=== PATIENT | male | born 1985 | race Hispanic/Latino ===

== ENCOUNTER 2017-03-03 01:19 | Emergency (ER) | payer SELFPAY ==
[~2017-03-03] VITALS: Ht 170.2 cm; Wt 83.9 kg
[2017-03-03 01:25] VITALS: BP 152/84
== END 2017-03-03 04:07 | disposition left against medical advice (07) ==
LOC: M ED 02:16
DX: Z53.21 Procedure and treatment not carried out due to patient leaving prior to being seen by health care provider (principal)

== ENCOUNTER 2017-03-06 22:40 | Emergency (ER) | payer SELFPAY ==
[~2017-03-06] VITALS: Ht 170.2 cm; Wt 83.9 kg
[2017-03-06 22:41] VITALS: BP 151/88
[2017-03-07] MEDS ORDERED: PRED20TA PO (00:24)
[2017-03-07] MEDS ORDERED: diphenhydrAMINE 50 MG CAP PO ONE (00:30)
[2017-03-07] MEDS ORDERED: predniSONE 20 MG TAB PO ONE (00:30)
[2017-03-07] MEDS ORDERED: predniSONE 50 MG TAB PO ONE (00:30)
== END 2017-03-07 00:34 | disposition home or self-care (01) ==
LOC: M ED 23:37
DX: L50.0 Allergic urticaria (principal); Z88.1 Allergy status to other antibiotic agents

== ENCOUNTER 2017-07-06 22:46 | Emergency (ER) | payer OTHER, SELFPAY ==
[~2017-07-06] VITALS: Ht 170.2 cm; Wt 84.1 kg
[~2017-07-06 22:46] MED LIST: PRED20TA PO
[2017-07-06] MEDS ORDERED: ALEV220C2 PO (22:57)
[2017-07-06] MEDS ORDERED: ACETAMINOPHEN 325 MG TAB PO ONE (23:15)
[2017-07-06] MEDS ORDERED: NS 1,000 ML IV ONE (23:15)
[2017-07-06] MEDS ORDERED: METOCLOPRAMIDE INJ 10MG/2ML VIAL (J2765) IV ONE (23:15)
[2017-07-07] MEDS ORDERED: IBUP80TA PO (01:22)
[2017-07-07] MEDS ORDERED: ONDA4TAB6 PO (01:22)
[2017-07-07 01:28] VITALS: BP 178/83
== END 2017-07-07 01:30 | disposition home or self-care (01) ==
LOC: M ED 22:46
DX: G43.109 Migraine with aura, not intractable, without status migrainosus (principal); Z88.1 Allergy status to other antibiotic agents
CPT/HCPCS: 96374; 99283; J2765

== ENCOUNTER → 2017-07-25 | Outpatient (REF) ==
[~2017-07-25] MED LIST changes: +ALEV220C2 PO; +IBUP80TA PO; +ONDA4TAB6 PO
== END ==
LOC: M LAB 09:40
PROVIDERS: ATTEND Nurse Practitioner Adult Health
DX: Z00.00 Encounter for general adult medical examination without abnormal findings (principal)

== ENCOUNTER → 2019-03-31 | Outpatient (REF) | LOC: M LAB 15:32 | PROVIDERS: ATTEND Nurse Practitioner Adult Health | DX: Z02.1 Encounter for pre-employment examination (principal) ==

== ENCOUNTER 2019-10-19 21:45 | Emergency (ER) | payer OTHER ==
[~2019-10-19] VITALS: Ht 172.7 cm; Wt 86.4 kg
[2019-10-20] MEDS ORDERED: ACET-683 PO (00:27)
[2019-10-20] MEDS ORDERED: ISOVUE-370 76% 100ML VIAL (Q9967) As Ordered ONE (01:04)
--- NOTE | 2019-10-20 01:38 | REPVR ---
PROCEDURE INFORMATION: Exam: CT Head Without Contrast Exam date and time: 10/20/2019 1:17 AM Age: 34 years old Clinical history: Pain; Headache TECHNIQUE: Imaging protocol: Computed tomography of the head without contrast. Radiation optimization: All CT scans at this facility use at least one of these dose optimization techniques: automated exposure control; mA and/or kV adjustment per patient size (includes targeted exams where dose is matched to clinical indication); or iterative reconstruction. COMPARISON: No relevant prior studies available. FINDINGS: Brain: Normal. No hemorrhage. Unremarkable white matter. No mass effect. Ventricles: Normal. No ventriculomegaly. Bones/joints: Unremarkable. No acute fracture. Sinuses: Visualized sinuses are unremarkable. No fluid levels. Mastoid air cells: Visualized mastoid air cells are well aerated. Soft tissues: Unremarkable. IMPRESSION: No acute intracranial abnormality. Electronically signed by: Shekhar Camilo On 10/20/2019 01:37:38 AM
--- NOTE | 2019-10-20 01:43 | REPVR ---
PROCEDURE INFORMATION: Exam: CT Angiography Head With Contrast Exam date and time: 10/20/2019 1:17 AM Age: 34 years old Clinical history: Pain; Headache; Additional info: Persistent left sided headaches, famhx cerebral aneurysm TECHNIQUE: Imaging protocol: Computed tomography angiography of the head with intravenous contrast. 3D rendering: MIP and 3D reconstructed images were created and reviewed. Radiation optimization: All CT scans at this facility use at least one of these dose optimization techniques: automated exposure control; mA and/or kV adjustment per patient size (includes targeted exams where dose is matched to clinical indication); or iterative reconstruction. Contrast material: ISOVUE 370; Contrast volume: 75 ml; Contrast route: IV; COMPARISON: No relevant prior studies available. FINDINGS: Right internal carotid artery: Unremarkable. Intracranial segment is patent with no significant stenosis. No aneurysm. Right anterior cerebral artery: Unremarkable. No occlusion or significant stenosis. No aneurysm. Right middle cerebral artery: Unremarkable. No occlusion or significant stenosis. No aneurysm. Right posterior cerebral artery: Unremarkable. No occlusion or significant stenosis. No aneurysm. Right vertebral artery: Unremarkable. No occlusion or significant stenosis. No aneurysm. Left internal carotid artery: Unremarkable. Intracranial segment is patent with no significant stenosis. No aneurysm. Left anterior cerebral artery: Unremarkable. No occlusion or significant stenosis. No aneurysm. Left middle cerebral artery: Unremarkable. No occlusion or significant stenosis. No aneurysm. Left posterior cerebral artery: Unremarkable. No occlusion or significant stenosis. No aneurysm. Left vertebral artery: Unremarkable. No occlusion or significant stenosis. No aneurysm. Basilar artery: Unremarkable. No occlusion or significant stenosis. No aneurysm. IMPRESSION: Normal CTA. No significant stenosis, aneurysm, or vascular occlusion. Electronically signed by: Shekhar Camilo On 10/20/2019 01:43:07 AM
[2019-10-20] MEDS ORDERED: KETOROLAC 30 MG/ML VIAL (J1885) IV ONE (02:00)
[2019-10-20 02:13] VITALS: BP 123/78
== END 2019-10-20 02:17 | disposition home or self-care (01) ==
LOC: M ED 21:45
DX: R51 Headache (principal); Z82.49 Family history of ischemic heart disease and other diseases of the circulatory system; Z88.1 Allergy status to other antibiotic agents
CPT/HCPCS: 70450; 70496; 80047; 99284; J1885; Q9967

== ENCOUNTER 2020-02-18 19:33 | Emergency (ER) | payer OTHER ==
[~2020-02-18] VITALS: Ht 170.2 cm; Wt 91.3 kg
[~2020-02-18 19:33] MED LIST changes: +ACET-683 PO
[2020-02-18 20:15] LABS: BASO % 0.3 % (0.0-1.0); EOS % 0.3 % (0.0-3.0); HEMATOCRIT 41.7 % (42.0-52.0); LYMPH # 3.2 10^3/uL (1.5-5.0); LYMPH % 36.2 % (24.0-44.0); MEAN CORPUSCULAR HEMOGLOBIN 29.7 pg (27.0-33.0); MEAN CORPUSCULAR HGB CONC 33.6 g/dl (32.0-36.5); MEAN CORPUSCULAR VOLUME 88.5 fl (80.0-96.0); MONO # 0.7 10^3/uL (0.0-0.8); MONO % 7.8 % (0.0-5.0); NEUTROPHILS # 4.8 10^3/uL (1.5-8.5); NEUTROPHILS % 54.8 % (36.0-66.0); PLATELET COUNT, AUTOMATED 318 10^3/uL (150-450); RED BLOOD COUNT 4.71 10^6/uL (4.30-6.10); WHITE BLOOD COUNT 8.7 10^3/uL (4.0-10.0)
[2020-02-18 20:24] LABS: INR 0.99; PROTHROMBIN TIME 12.8 SECONDS (11.8-14.0)
[2020-02-18 20:25] LABS: PARTIAL THROMBOPLASTIN TIME 31.4 SECONDS (25.0-38.4)
[2020-02-18 20:46] LABS: BLOOD UREA NITROGEN 11 MG/DL (7-18); CALCIUM LEVEL 9.2 MG/DL (8.5-10.1); CARBON DIOXIDE LEVEL 30 MEQ/L (21-32); CHLORIDE LEVEL 107 MEQ/L (98-107); CK-MB VALUE MASS 2.4 NG/ML (<3.6); CPK CREATINE PHOSPHOKINASE 172 U/L (39-308); CREATININE FOR GFR 1.07 MG/DL (0.70-1.30); GLOMERULAR FILTRATION RATE > 60.0 (>60); GLUCOSE, FASTING 93 MG/DL (70-100); POTASSIUM SERUM 4.1 MEQ/L (3.5-5.1); SODIUM LEVEL 139 MEQ/L (136-145); TROPONIN I < 0.02 NG/ML (< 0.10)
[2020-02-18] MEDS ORDERED: ISOVUE-370 76% 100ML VIAL (Q9967) As Ordered ONE (21:10)
[2020-02-18] MEDS ORDERED: KETOROLAC 30 MG/ML VIAL (J1885) IV ONE (21:15)
[2020-02-18] MEDS ORDERED: NS 500 ML IV ONE (21:15)
--- NOTE | 2020-02-18 21:44 | REPVR ---
PROCEDURE INFORMATION: Exam: CT Angiography Chest With Contrast Exam date and time: 02/18/2020 9:25 PM Age: 34 years old Clinical indication: Chest pain; Type not specified; Additional info: Cp TECHNIQUE: Imaging protocol: Computed tomographic angiography of the chest with intravenous contrast. 3D rendering: MIP and/or 3D reconstructed images were created by the technologist. Radiation optimization: All CT scans at this facility use at least one of these dose optimization techniques: automated exposure control; mA and/or kV adjustment per patient size (includes targeted exams where dose is matched to clinical indication); or iterative reconstruction. Contrast material: ISOVUE 370; Contrast volume: 75 ml; Contrast route: IV; COMPARISON: No relevant prior studies available. FINDINGS: Pulmonary arteries: Peripheral pulmonary artery evaluation limited by cardiac and respiratory motion artifact. Central pulmonary arteries show no intraluminal defect suggestive of clot. Aorta: No thoracic aortic aneurysm or dissection. Lungs: Pulmonary vascular/interstitial pattern does not suggest active pulmonary edema. No suspicious lung mass or air space process. No central endobronchial lesion. Pleural space: No pleural effusion or pneumothorax. Heart: No overt cardiac enlargement or abnormal volume of pericardial fluid. Mediastinum: Residual thymic tissue is present in the anterior mediastinum. Hiatal hernia measuring 5 cm is present. Lymph nodes: No enlarged mediastinal lymph nodes. Bones/joints: Bony structures show no acute fracture or destructive process. Soft tissues: Unremarkable. IMPRESSION: 1. No evidence of acute pulmonary embolus. 2. No other acute or concerning focal intrathoracic abnormality. 3. Hiatal hernia measuring 5 cm. This can be associated with chest pain in the setting of GE reflux Electronically signed by: Shahzad Juarez On 02/18/2020 21:43:46 PM
[2020-02-18] MEDS ORDERED: PROT1TAB2 PO (22:05)
[2020-02-18] MEDS ORDERED: KETO10TAB PO (22:05)
[2020-02-18 22:23] VITALS: BP 129/85
--- NOTE | 2020-02-19 07:50 | ECGEPIP ---
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
== END 2020-02-18 22:33 | disposition home or self-care (01) ==
LOC: M ED 19:33
DX: R07.1 Chest pain on breathing (principal); I45.10 Unspecified right bundle-branch block; K44.9 Diaphragmatic hernia without obstruction or gangrene; G43.909 Migraine, unspecified, not intractable, without status migrainosus; Z79.899 Other long term (current) drug therapy; Z88.1 Allergy status to other antibiotic agents
CPT/HCPCS: 71275; 80048; 82550; 82553; 84484; 85025; 85610; 85730; 93005; 96361; 96374; 99284; J1885; Q9967

== ENCOUNTER 2020-03-05 23:02 | Observation (INO) | payer OTHER ==
[~2020-03-05] VITALS: Ht 170.2 cm; Wt 90.7 kg
[~2020-03-05 23:02] MED LIST changes: +KETO10TAB PO; +PROT1TAB2 PO
[2020-03-05 23:28] LABS: BASO % 0.3 % (0.0-1.0); EOS # 0.1 10^3/uL (0.0-0.5); EOS % 0.5 % (0.0-3.0); HEMATOCRIT 43.3 % (42.0-52.0); HEMOGLOBIN 14.6 g/dl (13.5-17.5); LYMPH # 4.7 10^3/uL (1.5-5.0); LYMPH % 41.4 % (24.0-44.0); MEAN CORPUSCULAR HEMOGLOBIN 29.7 pg (27.0-33.0); MEAN CORPUSCULAR HGB CONC 33.7 g/dl (32.0-36.5); MEAN CORPUSCULAR VOLUME 88.2 fl (80.0-96.0); MONO # 0.8 10^3/uL (0.0-0.8); MONO % 7.4 % (0.0-5.0); NEUTROPHILS # 5.7 10^3/uL (1.5-8.5); NEUTROPHILS % 50.1 % (36.0-66.0); PLATELET COUNT, AUTOMATED 350 10^3/uL (150-450); RED BLOOD COUNT 4.91 10^6/uL (4.30-6.10); WHITE BLOOD COUNT 11.3 10^3/uL (4.0-10.0)
[2020-03-05 23:40] LABS: INR 0.96; PROTHROMBIN TIME 12.5 SECONDS (11.8-14.0)
[2020-03-05] MEDS ORDERED: NS 1,000 ML IV ONE (23:45)
[2020-03-06] MEDS ORDERED: ISOVUE-370 76% 100ML VIAL As Ordered ONE (00:04)
[2020-03-06 00:16] LABS: ALBUMIN 4.2 GM/DL (3.2-5.2); ALT/SGPT 46 U/L (12-78); BILIRUBIN,DIRECT < 0.1 MG/DL (0.0-0.2); BILIRUBIN,TOTAL 0.3 MG/DL (0.2-1.0); BLOOD UREA NITROGEN 14 MG/DL (7-18); CARBON DIOXIDE LEVEL 25 MEQ/L (21-32); CHLORIDE LEVEL 106 MEQ/L (98-107); CK-MB VALUE MASS 1.4 NG/ML (<3.6); CPK CREATINE PHOSPHOKINASE 112 U/L (39-308); CREATININE FOR GFR 1.17 MG/DL (0.70-1.30); FREE THYROXINE INDEX 2.9 % (1.4-3.8); GLOMERULAR FILTRATION RATE > 60.0 (>60); GLUCOSE, FASTING 167 MG/DL (70-100); LIPASE 94 U/L (73-393); MB/CK RELATIVE INDEX 1.25 (< OR =4); POTASSIUM SERUM 3.7 MEQ/L (3.5-5.1); SODIUM LEVEL 141 MEQ/L (136-145); T UPTAKE 32 % (33-40); THYROID STIMULATING HORMONE 0.938 uIU/ML (0.358-3.740); THYROXINE (T4) 9.2 UG/DL (4.5-12.0); TOTAL PROTEIN 8.2 GM/DL (6.4-8.2); TROPONIN I < 0.02 NG/ML (< 0.10)
--- NOTE | 2020-03-06 00:40 | REPVR ---
PROCEDURE INFORMATION: Exam: CT Head Without Contrast Exam date and time: 03/05/2020 12:17 AM Age: 34 years old Clinical indication: Pain; Headache; Additional info: CARR TECHNIQUE: Imaging protocol: Computed tomography of the head without contrast. Radiation optimization: All CT scans at this facility use at least one of these dose optimization techniques: automated exposure control; mA and/or kV adjustment per patient size (includes targeted exams where dose is matched to clinical indication); or iterative reconstruction. COMPARISON: CT Head without contrast 10/20/2019 1:06 AM FINDINGS: There are no intra-or extra-axial hemorrhages or fluid collections. There is no mass effect or midline shift. Ventricles are symmetrical and nondilated for age. There are no focal parenchymal abnormalities. No calvarial fractures. IMPRESSION: No acute intracranial process. No intracranial hemorrhage. Electronically signed by: Amador Hoyos On 03/06/2020 00:40:30 AM
--- NOTE | 2020-03-06 00:40 | REPVR ---
PROCEDURE INFORMATION: Exam: CT Angiography Chest With Contrast Exam date and time: 03/05/2020 12:17 AM Age: 34 years old Clinical indication: Chest pain; Additional info: CARR TECHNIQUE: Imaging protocol: Computed tomographic angiography of the chest with intravenous contrast. 3D rendering: MIP and/or 3D reconstructed images were created by the technologist. Radiation optimization: All CT scans at this facility use at least one of these dose optimization techniques: automated exposure control; mA and/or kV adjustment per patient size (includes targeted exams where dose is matched to clinical indication); or iterative reconstruction. Contrast material: ISO 370; Contrast volume: 75 ml; Contrast route: IV; COMPARISON: CT ANGIO CHEST 02/18/2020 9:14 PM FINDINGS: Pulmonary arteries: The main pulmonary artery measures 27 mm. No central pulmonary embolism is identified. Aorta: The ascending thoracic aorta measures 33 mm. Other arteries: The left vertebral artery originates directly from the arch. Lungs: Motion artifact in the lungs with image degradation. Pleural space: Unremarkable. No pneumothorax. No pleural effusion. Heart: Unremarkable. No cardiomegaly. No pericardial effusion. Mediastinum: Mild hiatal hernia. Lymph nodes: Unremarkable. No enlarged lymph nodes. Bones/joints: Unremarkable. No acute fracture. Soft tissues: Unremarkable. IMPRESSION: 1. Mild hiatal hernia. 2. Otherwise negative CTA chest. No central pulmonary embolism is identified. There is motion artifact in the lungs with image degradation. Electronically signed by: Rainer Pearce On 03/06/2020 00:40:46 AM
[2020-03-06 01:25] LABS: AMPHETAMINES LEVEL URINE NEGATIVE (NEGATIVE); BARBITURATES URINE NEGATIVE (NEGATIVE); BENZODIAZEPINES URINE NEGATIVE (NEGATIVE); CANNABINOIDS URINE POSITIVE (NEGATIVE); COCAINE METABOLITE URINE NEGATIVE (NEGATIVE); METHADONE URINE NEGATIVE (NEGATIVE); OPIATES URINE NEGATIVE (NEGATIVE); PHENCYCLIDINE URINE NEGATIVE (NEGATIVE)
[2020-03-06 01:57] LABS: ETHYL ALCOHOL (ETHANOL) < 0.003 % (0.000-0.010)
--- NOTE | 2020-03-06 02:18 | REP ---
Clinical: Acute chest pain . Comparison: None . Findings: The mediastinum and cardiac silhouette are stable and within normal limits for portable technique. The lung muse are clear without acute consolidation, effusion, or pneumothorax. Skeletal structures are intact. Impression: No acute cardiopulmonary process appreciated. Electronically Signed by Reid Villa MD 03/06/2020 02:09 A
[2020-03-06] MEDS ORDERED: GI COCKTAIL 50ML BTL(HYOSCYAMINE/MAALOX/LIDOCAINE VISCOUS)(1:3:1) PO ONE (03:00)
[2020-03-06] MEDS ORDERED: PANTOPRAZOLE 40MG VIAL (C9113 PER 1) IV ONE (03:00)
[2020-03-06] MEDS ORDERED: ACETAMINOPHEN *IV* 1,000 MG in IV 1 EA IV ONE (03:15)
[2020-03-06] MEDS ORDERED: MORPHINE 2 MG/ML 1ML VIAL (J2270) IV PRN (03:15)
[2020-03-06] MEDS: SUMAtriptan SUCCINATE 6 MG/0.5 ML VIAL SC ONE ×2 (03:15→03:30)
[2020-03-06] MEDS ORDERED: MORPHINE 4 MG/ML 1ML VIAL/SYRINGE (J2270) IV ONE (03:15)
[2020-03-06] MEDS ORDERED: GI COCKTAIL 50ML BTL(HYOSCYAMINE/MAALOX/LIDOCAINE VISCOUS)(1:3:1) PO PRN (03:15)
[2020-03-06] MEDS ORDERED: FIORICET TAB PO PRN (03:15)
[2020-03-06] MEDS: NS 1,000 ML IV SCH ×3 (03:30→10:10)
[2020-03-06] MEDS ORDERED: KETO10TAB PO (03:43)
[2020-03-06] MEDS ORDERED: PROT1TAB2 PO (03:44)
[2020-03-06] MEDS ORDERED: METOCLOPRAMIDE INJ 10MG/2ML VIAL (J2765 PER 1) IV ONE (03:45)
[2020-03-06] MEDS ORDERED: RIZATRIPTAN BENZOATE 10 MG TAB PO PRN (03:45)
[2020-03-06] MEDS ORDERED: atenoloL 25 MG TAB PO ONE (03:45)
[2020-03-06 04:30] VITALS: BP 147/94
[2020-03-06 05:10] VITALS: BP 147/94
[2020-03-06 06:00] VITALS: BP 121/81
--- NOTE | 2020-03-06 08:57 | ECGEPIP ---
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
[2020-03-06] MEDS ORDERED: atenoloL 25 MG TAB PO SCH (09:00)
--- NOTE | 2020-03-06 10:36 | HPE ---
DATE OF ADMISSION: 03/06/2020 CHIEF COMPLAINT: Chest pain. 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 The patient was watching television initially, then complained of a headache which was frontal and behind the left eye. He then decided to cut his hair in the bathroom, at which point he felt palpitations and chest tightness. He had taken some Tylenol for his headache, but the chest tightness worried him. He complained of some lightheadedness, slight shortness of breath lasting for a few seconds. He then called emergency medical services (EMS), who found him with atrial tachycardia, ventricular rate of 140, and gave him two doses of adenosine, at which point the patient said that he felt worse. On arrival in the ER, he was in sinus tachycardia, ventricular rate of 124, blood pressure was 152/95, 95% on room air. CT chest was negative for pulmonary embolism. CT head due to complaints of migraine was negative for acute intracranial pathology without intracranial hemorrhage. Hospitalist was called to admit for atypical chest pain. The patient complains of 10/10 pain without visual changes or aura. No upper or lower extremity weakness, paresthesias along with his headache. Taken one dose of Tylenol at home without improvement. The patient has had no prior episodes of shortness of breath and feeling of passing out. He has had atypical chest pain that is ongoing for the past few months since early February. The patient admits to drinking a coffee in the morning and two Pepsi throughout the day but no other caffeinated beverages. 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 PAST SURGICAL HISTORY: None. 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 SOCIAL HISTORY: Drinks 1-2 beers a week. No cigarette use. Recreational marijuana use. Works at [employer]. Lives with doug and her three children at home. FAMILY HISTORY: Father age 52 of aneurysm September 2019 in the brain, hypertension. Mother alive age 54 with kidney cancer. Five brothers alive and well. HOME MEDICATIONS: - Tylenol over the counter - Protonix 40 daily REVIEW OF SYSTEMS: Per history of present illness (HPI); 12-point system otherwise negative. PHYSICAL EXAMINATION: Temperature 98.2, pulse 120 sinus rhythm, respiratory rate 18, blood pressure 152/95, 96% on room air. Generally, the patient is awake, alert, oriented times three. Speaking in full sentences. No respiratory distress. Use of respiratory accessory muscles. Anicteric. No jaundice. Moist mucous membranes. No thyromegaly. No cervical lymphadenopathy. LUNGS: Are clear to auscultation. No wheezing, rales, or rhonchi. HEART: S1, S2, sinus tachycardia. No murmurs, rubs, or gallops. ABDOMEN: Is soft, nontender, nondistended. Positive bowel sounds. EXTREMITIES: No cyanosis, clubbing, or pitting edema. HEENT examination: No maxillary sinus tenderness. Electrocardiogram (EKG): Sinus tachycardia, ventricular rate of 140. LABORATORY DATA: White count 11.3, hemoglobin 14, hematocrit 43, platelet count 350. Sodium 141, potassium 3.7, chloride 106, bicarbonate 25, BUN 14, creatinine 1.17, glucose 167, calcium 9, total bilirubin (T Bili) 0.3, direct bilirubin less than 0.1, AST 19, ALT 46, alkaline phosphatase 98, total CK 112, MB fraction 1.4, troponin less than 0.02, total protein 8.2, albumin 4.2, lipase 94, TSH 0.938, free T4 2.9, T3 uptake 32. INR 0.96. Urine toxicology screen positive cannabinoids, negative cocaine, alcohol less than 0.003. CT head: No acute intracranial pathology. CT chest: No pulmonary embolism (PE). Mild hiatal hernia. 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 Hospitalist service was called to admit. IMPRESSION: 1. Atypical chest pain. The patient does not have risk factors for coronary artery disease. Previously diagnosed with costochondritis. CT chest was negative for pulmonary embolism. The patient will be kept nothing by mouth for UGISeries in the morning. Rule out gastritis, peptic ulcer disease. Empiric therapy with proton pump inhibitor (PPI). Gastrointestinal (GI) cocktail for now. 2. Atrial tachyarrhythmia, initially thought to be supraventricular tachycardia (SVT). Given two doses of adenosine with worsening complaint of chest pain. At this time in the ER, he remains in sinus tachycardia. Therefore, will continue to monitor on telemetry. Thyroid-stimulating hormone (TSH) is within normal limits. The patient admits to only using three caffeinated beverages. Will continue on telemetry. If the patient does develop SVT, he may benefit from continued AV reg blockade. No sign of delta wave or WPW syndrome. He did complain of dyspnea and near-syncope, complaining of dizziness and lightheadedness. Therefore, we will obtain an echocardiogram. 3. Migraine. The patient has been given sumatriptan, as-needed Fioricet and Maxalt and supplemental oxygen. 4. Marijuana use. The patient has been counseled against recreational drug use. No cocaine in the urine toxicology screen. 5. Uncontrolled hypertension secondary to complaint of migraine and atypical chest pain. The patient will be given atenolol, and pain will be controlled with morphine and Tylenol as needed. MTDD
--- NOTE | 2020-03-06 18:40 | DS.PDOC ---
Discharge Summary General Date of Admission Mar 06, 2020 at 03:00 Date of Discharge 03/06/2020 Primary Care Physician: Salvador Whittaker Attending Physician: ROMERO AVALOS MD Discharge Summary PROCEDURES PERFORMED DURING STAY: Transthoracic echocardiogram. ADMITTING/DISCHARGE DIAGNOSES: 1. Atypical chest pain 2. Hiatal hernia 3. History of red man syndrome 4. History of left hand cellulitis 5. 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 The patient was watching television initially, then complained of a headache which was frontal and behind the left eye. He then decided to cut his hair in the bathroom, at which point he felt palpitations and chest tightness. He had taken some Tylenol for his headache, but the chest tightness worried him. He complained of some lightheadedness, slight shortness of breath lasting for a few seconds. He then called emergency medical services (EMS), who found him with atrial tachycardia, ventricular rate of 140, and gave him two doses of adenosine, at which point the patient said that he felt worse. On arrival in the ER, he was in sinus tachycardia, ventricular rate of 124, blood pressure was 152/95, 95% on room air. CT chest was negative for pulmonary embolism. CT head due to complaints of migraine was negative for acute intracranial pathology without intracranial hemorrhage. Hospitalist was called to admit for atypical chest pain. The patient complains of 10/10 pain without visual changes or aura. No upper or lower extremity weakness, paresthesias along with his headache. Taken one dose of Tylenol at home without improvement. The patient has had no prior episodes of shortness of breath and feeling of passing out. He has had atypical chest pain that is ongoing for the past few months since early February. The patient admits to drinking a coffee in the morning and two Pepsi throughout the day but no other caffeinated beverages. Patient was monitored overnight with no acute events on telemetry the rest of the night. During morning rounds, he said he was feeling fine and had had no further reiterations of his palpitations overnight. Given that his in-hospital w ork up was negative, their was no urgent need for an upper GI series, and the patient clinically was stable. The patient felt comfortable, following his echocardiogram being performed, with being discharged home with close follow-up with a primary care provider. DISCHARGE MEDICATIONS: Please see below. ALLERGIES: Please see below. Vitals: (see below) General: No acute distress, laying comfortably in bed. HEENT: Normocephalic, atraumatic. EOMI. No scleral icterus. Moist mucous membranes. No pharyngeal erythema or uvular deviation. Neck: No JVD, lymphadenopathy, or thyromegaly. Cardiac: RRR, Normal S1 and S2, No murmurs, gallops, rubs. Pulm: Clear to auscultation b/l. Symmetric thorax. No wheezing, crackles, rhonchi Abd: Bowel Sounds present. Abdomen is soft, non-tender, non-distended. No guarding, rebound tenderness, or rigidity. No hepatosplenomegaly. Ext: No edema or cyanosis Skin: No skin changes Neuro: No focal neuro deficits Psych: Appropriate affect LABORATORY DATA: Please see below. IMAGIN03/05/2020 chest x-ray: No acute cardiopulmonary process appreciated. 03/05/[address]: No acute intracranial process. No intra-cranial hemorrhage. 03/05/2020 CTA chest: IMPRESSION: 1. Mild hiatal hernia. 2. Otherwise negative CTA chest. No central pulmonary embolism is identified. There is motion artifact in the lungs with image degradation. PROGNOSIS: stable ACTIVITY: As tolerated. DIET: As tolerated DISCHARGE PLAN: Discharge home DISCHARGE INSTRUCTIONS: 1. Please establish/follow-up with primary care provider ([facility] on 03/14/2020 at 0900). 2. Review results of echocardiogram which are pending at time of discharge. 3. Return to hospital if symptoms worsen. DISCHARGE CONDITION: [Stable]. TIME SPENT ON DISCHARGE: Greater than 30 minutes. Vital Signs/I&Os Vital Signs Date Time Temp Pulse Resp B/P (MAP) Pulse Ox O2 Delivery O2 Flow Rate FiO2 03/06/20 06:00 99.0 110 18 121/81 (94) 97 Nasal Cannula 2.0 03/05/20 23:17 100 I&O- Last 24 Hours up to 6 AM 03/06/20 06:00 Intake Total 1000 ml Balance 1000 ml Laboratory Data Labs 24H Laboratory Tests 2 03/05/20 23:21: Immature Granulocyte % (Auto) 0.3, Neutrophils (%) (Auto) 50.1, Lymphocytes (%) (Auto) 41.4, Monocytes (%) (Auto) 7.4H, Eosinophils (%) (Auto) 0.5, Basophils (%) (Auto) 0.3, Neutrophils # (Auto) 5.7, Lymphocytes # (Auto) 4.7, Monocytes # (Auto) 0.8, Eosinophils # (Auto) 0.1, Basophils # (Auto) 0.0, Nucleated Red Blood Cells % (auto) 0.0, Prothrombin Time 12.5, Prothromb Time International Ratio 0.96, Anion Gap 10, Glomerular Filtration Rate > 60.0, Calcium Level 9.0, Total Bilirubin 0.3, Direct Bilirubin < 0.1, Aspartate Amino Transf (AST/SGOT) 19, Alanine Aminotransferase (ALT/SGPT) 46, Alkaline Phosphatase 98, Total Creatine Kinase 112, Creatine Kinase MB 1.4, Creatine Kinase MB Relative Index 1.25, Troponin I < 0.02, Total Protein 8.2, Albumin 4.2, Albumin/Globulin Ratio 1.05, Lipase 94, Thyroid Stimulating Hormone (TSH) 0.938, Free Thyroxine Index 2.9, Thyroxine (T4) 9.2, Triiodothyronine (T3) Uptake 32L, Ethyl Alcohol Level < 0.003 03/05/20 23:38: POC Glucose (Misc Panel) 171H, POC Sodium (Misc Panel) 140, POC Potassium (Misc Panel) 3.5, POC Chloride (Misc Panel) 103, POC Total CO2 (Misc Panel) 26.0, POC Blood Urea Nitrogen (Misc Panel 15, POC Ionized Calcium (Misc Panel) 4.5, POC Creatinine (Misc Panel) 1.0, POC Hematocrit (Misc Panel) 44.0 03/06/20 00:49: Urine Opiates Screen NEGATIVE, Urine Methadone Screen NEGATIVE, Urine Barbiturates Screen NEGATIVE, Urine Phencyclidine Screen NEGATIVE, Urine Amphetamines Screen NEGATIVE, Urine Benzodiazepines Screen NEGATIVE, Urine Cocaine Metabolite Screen NEGATIVE, Urine Cannabinoids Screen POSITIVEH CBC/BMP Laboratory Tests 03/05/20 23:21 Discharge Medications Scheduled Pantoprazole Sodium (Protonix) 40 Mg Tablet.dr, 40 MG PO DAILY, (Reported) Allergies Coded Allergies: vancomycin (Verified Adverse Reaction, Intermediate, red man's syndrome, 03/05/20) GME ATTESTATION GME ATTESTATION My faculty preceptor for this patient encounter was physically present during the encounter and was fully available. All aspects of the patient interview, examination, medical decision making process, and medical care plan development were reviewed and approved by the faculty preceptor. The faculty preceptor is aware and concurs with the plan as stated in the body of this note and will attest to such by his/her cosignature. SHAE MARINO DO Mar 06, 2020 18:40
--- NOTE | 2020-03-06 19:06 | ECGEPIP ---
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
--- NOTE | 2020-03-06 19:19 | ECHO ---
DATE OF PROCEDURE: 03/06/2020 REFERRING PHYSICIAN: Dr. Charissa Bryant INDICATION: Dyspnea. Height 170 cm, weight 91 kg. DIMENSIONS: IVS: 1.0 LV: 4.1 LVPW: 0.9 LA: 3.3 Aorta: 3.0 IVC: 1.4 Mitral E wave velocity: 85 A wave: 69 E prime septal: 10.2 E prime lateral: 11.2 FINDINGS: The study is of acceptable technical quality. The patient is in sinus rhythm. Normal left ventricular (LV) size with normal LV systolic and diastolic function. All four cardiac valves were well seen and appear normal. Right ventricle is normal size and systolic function. Both atria appear normal. No pericardial effusion is present. Inferior vena cava is normal size. Aortic root and aortic arch appear normal, abdominal aorta was not well seen. Doppler interrogation reveals competent aortic and mitral valves. There is trace tricuspid insufficiency. Calculated pulmonary artery pressure is within normal limits. Pulmonic valve is functionally competent as well. Mitral inflow pattern and tissue Doppler imaging of mitral annulus revealed normal diastolic function of left ventricle. CONCLUSIONS: 1. Study is of good technical quality, the patient is in sinus rhythm. 2. Normal LV size and systolic function, normal diastolic function. 3. No significant valvular disease. 4. Likely normal central venous pressure and normal pulmonary artery pressure. 5. Essentially normal echocardiogram. COMMENT: Subacute bacterial endocarditis (SBE) prophylaxis is not recommended. The study does not provide obvious explanation for dyspnea.
[2020-03-07] MEDS ORDERED: PANTOPRAZOLE 40MG TAB (PROTONIX) PO SCH (09:00)
== END 2020-03-06 16:58 | disposition home or self-care (01) ==
LOC: EDBD 23:02 → M ED 23:02 → M ED INP 23:03 → UNDOADMOB 03-06 03:00 → M ED INP 03-06 03:00 → ENRESERVTM 03-06 03:24 → ENRESERVDT 03-06 03:24 → M MSPAV 03-06 04:35 → M ED INP 03-06 04:35 → UNDODISOB 03-06 16:58
PROVIDERS: ADMIT General Practice; ATTEND Internal Medicine
DX: R07.89 Other chest pain (principal); K44.9 Diaphragmatic hernia without obstruction or gangrene; I10 Essential (primary) hypertension; R00.2 Palpitations; R51 Headache; F12.10 Cannabis abuse, uncomplicated; Z88.1 Allergy status to other antibiotic agents; Z79.899 Other long term (current) drug therapy
CPT/HCPCS: 70450; 71045; 71275; 80047; 80048; 80076; 80307; 82550; 82553; 83690; 84436; 84443; 84479; 84484; 85025; 85610; 93005; 93041; 93306; 94760; 96360; 96372; 99285; G0480; Q9967

== ENCOUNTER 2020-03-27 20:57 | Emergency (ER) | payer OTHER ==
[~2020-03-27] VITALS: Ht 170.2 cm; Wt 88.3 kg
[2020-03-27] MEDS ORDERED: METO50TA7 PO (21:01)
[2020-03-27] MEDS ORDERED: PRED20TA PO (21:01)
[2020-03-27] MEDS ORDERED: IBUPROFEN 800 MG TAB PO ONE (21:30)
[2020-03-27 22:00] VITALS: BP 145/89
== END 2020-03-27 22:18 | disposition home or self-care (01) ==
LOC: M ED 20:57
DX: R51 Headache (principal); Z88.1 Allergy status to other antibiotic agents; F12.20 Cannabis dependence, uncomplicated; Z79.899 Other long term (current) drug therapy

== ENCOUNTER 2020-07-01 12:50 | Emergency (ER) | payer OTHER ==
[~2020-07-01 12:50] MED LIST changes: +METO50TA7 PO
[2020-08-14 14:55] LABS: BASO % 0.3 % (0.0-1.0); EOS % 0.2 % (0.0-3.0); HEMATOCRIT 42.3 % (42.0-52.0); HEMOGLOBIN 14.2 g/dl (13.5-17.5); LYMPH # 1.5 10^3/uL (1.5-5.0); LYMPH % 16.2 % (24.0-44.0); MEAN CORPUSCULAR HEMOGLOBIN 29.6 pg (27.0-33.0); MEAN CORPUSCULAR HGB CONC 33.6 g/dl (32.0-36.5); MEAN CORPUSCULAR VOLUME 88.1 fl (80.0-96.0); MONO # 0.9 10^3/uL (0.0-0.8); MONO % 9.5 % (0.0-5.0); NEUTROPHILS # 6.7 10^3/uL (1.5-8.5); NEUTROPHILS % 73.4 % (36.0-66.0); PLATELET COUNT, AUTOMATED 268 10^3/uL (150-450); WHITE BLOOD COUNT 9.1 10^3/uL (4.0-10.0)
== END 2020-07-01 16:18 | disposition home or self-care (01) ==
LOC: M ED 12:50
DX: A04.5 Campylobacter enteritis (principal); I10 Essential (primary) hypertension; K21.9 Gastro-esophageal reflux disease without esophagitis; K44.9 Diaphragmatic hernia without obstruction or gangrene; Z88.1 Allergy status to other antibiotic agents; Z79.899 Other long term (current) drug therapy

== ENCOUNTER 2020-10-19 13:46 | Emergency (ER) | payer OTHER, SELFPAY ==
[~2020-10-19] VITALS: Ht 170.2 cm; Wt 88.4 kg
[2020-10-19] MEDS ORDERED: GI COCKTAIL 50ML BTL(HYOSCYAMINE/MAALOX/LIDOCAINE VISCOUS)(1:3:1) PO ONE (14:30)
[2020-10-19 14:53] LABS: HEMATOCRIT 42.6 % (42.0-52.0); HEMOGLOBIN 13.8 g/dl (13.5-17.5); MEAN CORPUSCULAR HEMOGLOBIN 28.7 pg (27.0-33.0); MEAN CORPUSCULAR HGB CONC 32.4 g/dl (32.0-36.5); MEAN CORPUSCULAR VOLUME 88.6 fl (80.0-96.0); PLATELET COUNT, AUTOMATED 313 10^3/uL (150-450); RED BLOOD COUNT 4.81 10^6/uL (4.30-6.10); WHITE BLOOD COUNT 8.5 10^3/uL (4.0-10.0)
--- NOTE | 2020-10-19 15:12 | REP ---
INDICATION: CP. COMPARISON: March 05, 2020.. TECHNIQUE: Portable AP sitting radiograph. FINDINGS: The lungs are well inflated and clear. The pleural angles are sharp. Heart size is normal. Pulmonary vasculature is not increased. Monitoring electrodes are seen. No bony abnormality is seen. IMPRESSION: Negative portable chest x-ray. <Electronically signed by Nj Solitario > 10/19/20 [id number]
[2020-10-19 16:14] LABS: ALBUMIN 4.1 GM/DL (3.2-5.2); ALT/SGPT 41 U/L (12-78); BILIRUBIN,TOTAL 0.4 MG/DL (0.2-1.0); BLOOD UREA NITROGEN 12 MG/DL (7-18); CALCIUM LEVEL 9.2 MG/DL (8.5-10.1); CARBON DIOXIDE LEVEL 29 MEQ/L (21-32); CHLORIDE LEVEL 105 MEQ/L (98-107); CREATININE FOR GFR 1.06 MG/DL (0.70-1.30); GLOMERULAR FILTRATION RATE > 60.0 (>60); GLUCOSE, FASTING 91 MG/DL (70-100); LIPASE 77 U/L (73-393); SODIUM LEVEL 139 MEQ/L (136-145); TOTAL PROTEIN 7.6 GM/DL (6.4-8.2)
[2020-10-19] MEDS ORDERED: PEPC40TA12 PO (16:27)
[2020-10-19] MEDS ORDERED: SUCR1SS PO (16:27)
[2020-10-19 16:31] VITALS: BP 127/83
--- NOTE | 2020-10-20 08:42 | ECGEPIP ---
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
== END 2020-10-19 16:38 | disposition home or self-care (01) ==
LOC: M ED 13:46
DX: R07.9 Chest pain, unspecified (principal); I10 Essential (primary) hypertension; G43.909 Migraine, unspecified, not intractable, without status migrainosus; Z88.1 Allergy status to other antibiotic agents; Z79.899 Other long term (current) drug therapy